=== PATIENT | male | born 2000 | race Two or more races ===

== ENCOUNTER 2022-02-04 14:14 | Emergency (ER) | payer BC ==
[~2022-02-04] VITALS: Ht 172.7 cm; Wt 104.5 kg
[2022-02-04 14:18] VITALS: BP 166/111
[2022-02-04] MEDS ORDERED: oxymetazoline 15 ML nasal spray NS ONE (14:50)
[2022-02-04] MEDS ORDERED: tranexamic acid 100mg/ml inj. TP ONE (14:50)
== END 2022-02-04 16:56 | disposition home or self-care (01) ==
LOC: ER 14:14
DX: R03.0 Elevated blood-pressure reading, without diagnosis of hypertension (principal); I10 Essential (primary) hypertension
CPT/HCPCS: 30901; 99284; J3490